=== PATIENT | male | born 1990 | race American Indian/Alaskan Native ===

== ENCOUNTER 2017-06-06 20:30 | Emergency (ER) | payer OTHER ==
[2017-06-06] MEDS ORDERED: Mupirocin Oint 22 GM Tube TOP ONE (20:31)
--- NOTE | 2017-06-06 20:54 | EDM.PDOC ---
ED HPI GENERAL MEDICAL PROBLEM - General Chief Complaint: Genitourinary Problem Stated Complaint: [id number] PAIN IN GROIN AREA Time Seen by Provider: 06/06/17 21:00 Source of Information: Reports: Patient History Limitations: Reports: No Limitations - History of Present Illness INITIAL COMMENTS - FREE TEXT/NARRATIVE: itching in groin area 2 weeks ago and resolved now pain to penis, no buring with urination , not noted any discharge. Sexually active with no condom use Groin Pain Score (Numeric/FACES): 9 - Related Data Allergies Allergy/AdvReac Type Severity Reaction Status Date / Time No Known Allergies Allergy Verified 06/06/17 20:36 Home Meds: Home Meds . [No Known Home Meds] 06/06/17 [History] Past Medical History - Past Health History Medical/Surgical History: Denies Medical/Surgical History Social & Family History - Family History Family Medical History: Noncontributory - Tobacco Use Smoking Status *Q: Unknown Ever Smoked Second Hand Smoke Exposure: No - Caffeine Use Caffeine Use: Reports: Soda - Recreational Drug Use Recreational Drug Use: No ED ROS GENERAL - Review of Systems Review Of Systems: ROS reveals no pertinent complaints other than HPI. ED EXAM, RENAL/ - Physical Exam Exam: See Below Exam Limited By: No Limitations General Appearance: Alert, Mild Distress Eye Exam: Bilateral Eye: EOMI Ears: Normal External Exam Throat/Mouth: Normal Inspection Head: Atraumatic, Normocephalic Neck: Normal Inspection Respiratory/Chest: No Respiratory Distress Cardiovascular: Normal Peripheral Pulses (Male) Exam: Other (mild erythema to midshaft aterior side of penis with singe 5mmx 7mm lesion, ) Neurological: Alert, Oriented Skin Exam: Warm, Dry, Wound/Incision Course - Vital Signs Last Recorded V/S: Last Vital Signs Temp 98.7 F 06/06/17 20:46 Pulse 75 06/06/17 20:46 Resp 16 06/06/17 20:46 BP 126/80 06/06/17 20:46 Pulse Ox 99 06/06/17 20:46 - Orders/Labs/Meds Orders: Active Orders 24 hr Category Date Time Status CHLAMYDIA AND GONORRHEA BY TMA Routine Lab 06/06/17 20:52 Received Labs: Laboratory Tests 06/06/17 Range/Units 20:51 Urine Color Yellow (YELLOW) Urine Appearance Slightly cloudy (CLEAR) Urine pH 7.5 (5.0-9.0) Ur Specific [place] 1.020 (1.005-1.030) Urine Protein Negative (NEGATIVE) Urine Glucose (UA) Negative (NEGATIVE) Urine Ketones Negative (NEGATIVE) Urine Occult Blood Trace-intact H (NEGATIVE) Urine Nitrite Negative (NEGATIVE) Urine Bilirubin Negative (NEGATIVE) Urine Urobilinogen 4.0 H (0.2-1.0) mg/dL Ur Leukocyte Esterase Negative (NEGATIVE) Urine RBC 0-5 /HPF Urine WBC 0-5 (0-5/HPF) /HPF Ur Epithelial Cells Rare /HPF Urine Bacteria Rare (0-FEW/HPF) /HPF Urine Mucus Few H /LPF Urine Yeast Few H (0/HPF) /HPF Meds: Medications Discontinued Medications Generic Name Dose Route Start Last Admin Trade Name Fernanda PRN Reason Stop Dose Admin Azithromycin 1,000 mg 06/06/17 21:03 06/06/17 21:15 Zithromax PO 06/06/17 21:04 1,000 mg ONETIME ONE Administration Ceftriaxone Sodium 1 gm/ 0 gm 06/06/17 21:04 06/06/17 21:14 Lidocaine HCl 2.1 ml IM 06/06/17 21:05 2.3 inj ONETIME ONE Administration Mupirocin Confirm 06/06/17 21:08 06/06/17 21:14 Bactroban Oint Administered 06/06/17 21:09 Not Given Dose 22 gm .ROUTE .STK-MED ONE Departure - Departure Time of Disposition: 21:30 Disposition: Home, Self-Care 01 Condition: Good Clinical Impression: At risk for sexually transmitted disease due to unprotected sex, Lesion of penis - Discharge Information Instructions: Sexually Transmitted Disease, [id number] Referrals: PCP,None [Primary Care Provider] - Forms: ED Department Discharge Additional Instructions: Follow up in clinic on Saturday to recheck wound Discuss additional testing for Herpes if concerns mupirocin 3 times daily to wound until healed use condoms with sex - My Orders Last 24 Hours: My Active Orders 06/06/17 20:52 CHLAMYDIA AND GONORRHEA BY [facility] Routine - Assessment/Plan Last 24 Hours: My Active Orders 06/06/17 20:52 CHLAMYDIA AND GONORRHEA BY TMA Routine
[2017-06-06] MEDS ORDERED: Azithromycin 250 MG Tab PO ONE (21:03)
[2017-06-06] MEDS ORDERED: cefTRIAXone 1 GM, Lidocaine 1% 2.1 ML IM ONE ×2 (21:04)
[2017-06-06] MEDS ORDERED: Mupirocin Oint 22 GM Tube ONE (21:08)
== END 2017-06-06 21:30 | disposition home or self-care (01) ==
LOC: DL.ED 20:30
DX: N48.89 Other specified disorders of penis (principal)
CPT/HCPCS: 81001; 87491; 87591; 96372; 99283; A9270; J0696; 99282

== ENCOUNTER 2022-01-10 13:15 | Emergency (ER) | payer MEDICAID ==
[2022-01-10] MEDS ORDERED: cefTRIAXone 500 MG, Lidocaine 1% 1 ML IM ONE ×2 (15:06)
[2022-01-18 07:46] LABS: C.TRACHOMATIS BY TMA Negative (Negative); N.GONORRHOEAE BY TMA Positive (Negative)
== END 2022-01-10 15:27 | disposition home or self-care (01) ==
LOC: DL.ED 13:15
DX: N39.0 Urinary tract infection, site not specified (principal); Z20.2 Contact with and (suspected) exposure to infections with a predominantly sexual mode of transmission
CPT/HCPCS: 36415; 81001; 87086; 87491; 87563; 87591; 96372; 99283; J0696

== ENCOUNTER 2022-10-25 21:52 | Emergency (ER) | payer MEDICAID ==
[2022-10-26] MEDS ORDERED: Acetaminophen/oxyCODONE 325-5 MG Tab PO ONE (00:46)
[2022-10-26] MEDS ORDERED: Ondansetron 4 MG Tab.DIS PO ONE (00:46)
== END 2022-10-26 01:59 | disposition home or self-care (01) ==
LOC: DL.ED 21:52
DX: S02.40DA Maxillary fracture, left side, initial encounter for closed fracture (principal); S02.40FA Zygomatic fracture, left side, initial encounter for closed fracture; S02.32XA Fracture of orbital floor, left side, initial encounter for closed fracture; Y04.0XXA Assault by unarmed brawl or fight, initial encounter
CPT/HCPCS: 70450; 70486; 99284; A9270

== ENCOUNTER 2023-06-09 07:09 | Emergency (ER) | payer SELFPAY ==
[2023-06-09 07:33] LABS: APPEARANCE,URINE CLEAR (CLEAR); BILIRUBIN,URINE NEGATIVE (NEGATIVE); COLOR,URINE YELLOW (YELLOW); GLUCOSE,URINE NEGATIVE (NEGATIVE); KETONES,URINE NEGATIVE (NEGATIVE); LEUKOCYTE ESTERASE,URINE NEGATIVE (NEGATIVE); NITRITE,URINE NEGATIVE (NEGATIVE); OCCULT BLOOD,URINE SMALL (NEGATIVE); PROTEIN,URINE NEGATIVE (NEGATIVE); UROBILINOGEN,URINE 0.2 mg/dL (0.2-1.0)
[2023-06-09 07:49] LABS: AMPHETAMINES,URINE NEGATIVE (NEGATIVE); BARBITURATES,URINE NEGATIVE (NEGATIVE); BENZODIAZEPINE,URINE NEGATIVE (NEGATIVE); MDMA (ECSTASY), URINE NEGATIVE (NEGATIVE); METHADONE,URINE NEGATIVE (NEGATIVE); METHAMPHETAMINES,URINE NEGATIVE (NEGATIVE); OPIATES,URINE NEGATIVE (NEGATIVE); OXYCODONE,URINE NEGATIVE (NEGATIVE); PHENCYCLIDINE,URINE NEGATIVE (NEGATIVE); TCA,URINE NEGATIVE (NEGATIVE)
[2023-06-09 08:20] LABS: BACTERIA,URINE OCCASIONAL /HPF (0-FEW/HPF); EPITHELIAL CELLS,URINE OCCASIONAL /HPF (NOT SEEN); MUCUS,URINE RARE /LPF (NOT SEEN); RBC,URINE 0-5 /HPF (0-5); WBC,URINE 0-5 /HPF (0-5/HPF)
[2023-06-09] MEDS: Ketorolac 30 MG/ML SDV IM ONE (08:51)
[2023-06-09] MEDS: Orphenadrine 60 MG/2 ML Inj IM ONE (08:53)
== END 2023-06-09 09:00 | disposition home or self-care (01) ==
LOC: DL.ED 07:09
DX: S39.012A Strain of muscle, fascia and tendon of lower back, initial encounter (principal); F17.210 Nicotine dependence, cigarettes, uncomplicated; X50.0XXA Overexertion from strenuous movement or load, initial encounter; Y92.512 Supermarket, store or market as the place of occurrence of the external cause; Y99.0 Civilian activity done for income or pay; Y93.89 Activity, other specified
CPT/HCPCS: 72070; 80305; 81001; 96372; 99283; J1885; J2360